=== PATIENT | female | born 1935 | race Asian ===

== ENCOUNTER → 2018-04-01 | Outpatient (CLI) | payer OTHER, MEDICAID ==
[2018-04-01] MEDS: IOHEXOL 300MG/ML 150 ML BTL (10:09)
[2018-04-01] MEDS: SOD CHLORIDE 0.9% 100 ML (10:09)
== END | disposition home or self-care (01) ==
LOC: C/S 08:48
DX: I71.4 Abdominal aortic aneurysm, without rupture (principal)
CPT/HCPCS: 74178